=== PATIENT | male | born 1950 | race Caucasian/White ===

== ENCOUNTER 2018-08-01 07:25 | Emergency (ER) | payer MEDICARE ==
[2018-08-01 07:25] VITALS: BMI 18.8
[2018-08-01] MEDS ORDERED: Sodium Chloride 0.9% 500 ML IV ONE ×2 (07:55→08:16)
[2018-08-01 07:56] VITALS: O2SAT 100
--- NOTE | 2018-08-01 08:39 | C.PDOC ---
History Of Present Illness 68-year-old male, PMHx includes diabetes presents to the emergency department with complaints of epigastric pain and sore throat since 2pm yesterday. Patient states he had dinner last night. Denies nausea/vomiting, diarrhea, fever or chills. Time Seen by Provider: 08/01/18 07:48 Chief Complaint (Nursing): GI Problem History Per: Patient History/Exam Limitations: no limitations Past Medical History Reviewed: Historical Data, Nursing Documentation, Vital Signs Vital Signs: Last Vital Signs Temp 98.1 F 08/01/18 07:42 Pulse 68 08/01/18 07:42 Resp 18 08/01/18 07:42 BP 138/75 08/01/18 07:42 Pulse Ox 100 08/01/18 07:42 - Medical History PMH: Denies: Chronic Kidney Disease Family History: States: No Known Family Hx - Social History Hx Alcohol Use: Yes Hx Substance Use: No Review Of Systems Constitutional: Negative for: Fever Respiratory: Negative for: Shortness of Breath Gastrointestinal: Positive for: Abdominal Pain. Negative for: Nausea, Vomiting Skin: Negative for: Rash Neurological: Negative for: Weakness, Numbness Physical Exam - Physical Exam Appears: Non-toxic, No Acute Distress Skin: Warm, Dry, No Rash Head: Atraumatic, Normacephalic Eye(s): bilateral: Normal Inspection Nose: Normal Oral Mucosa: Moist Lips: Normal Appearing Neck: Normal ROM Cardiovascular: Rhythm Regular, No Murmur Respiratory: Normal Breath Sounds, No Accessory Muscle Use Gastrointestinal/Abdominal: Soft, No Tenderness Back: Normal Inspection Extremity: Normal ROM, No Deformity Neurological/Psych: Oriented x3, Normal Speech ED Course And Treatment - Laboratory Results Result Diagrams: 08/01/18 09:11 08/01/18 09:11 O2 Sat by Pulse Oximetry: 100 Pulse Ox Interpretation: Normal (RA) Medical Decision Making Medical Decision Making: suspect reflux esophagitis gerd pud. able to tolerate po as per pt. labs imaging pending pt reassesed pain improeved. states tolerating po. doubt retained food bolus as tolerating po. stable for d.c Disposition - Disposition Referrals: Harpreet Plascencia MD [Staff Provider] - Disposition: HOME/ ROUTINE Disposition Time: 09:00 Condition: STABLE Additional Instructions: return to er with worsening symptoms or concerns Prescriptions: Famotidine [Pepcid] 20 mg PO DAILY #20 tab Instructions: Acute Abdomen (Belly Pain) Forms: [facility] (Danish) - Clinical Impression Clinical Impression: Abdominal pain - Scribe Statement The provider has reviewed the documentation as recorded by the Scribe (Jess Ray) Provider Attestation: All medical record entries made by the Scribe were at my direction and personally dictated by me. I have reviewed the chart and agree that the record accurately reflects my personal performance of the history, physical exam, medical decision making, and the department course for this patient. I have also personally directed, reviewed, and agree with the discharge instructions and disposition.
[2018-08-01 09:17] LABS: BASO % 0.7 % (0.0-2.0); EOS # 0.1 K/uL (0.0-0.7); EOS % 1.8 % (0.0-4.0); HEMOGLOBIN 13.2 g/dL (12.0-18.0); LYMPH # 1.3 K/uL (1.0-4.3); LYMPH % 28.1 % (20.0-40.0); MEAN CELL VOLUME 89.3 fL (80.0-94.0); MEAN CORPUSCULAR HEMOGLOBIN 29.6 pg (27.0-31.0); MEAN CORPUSCULAR HGB CONC 33.1 g/dL (33.0-37.0); MEAN PLATELET VOLUME 11.5 fL (7.2-11.7); MONO # 0.4 K/uL (0.0-0.8); MONO % 9.4 % (0.0-10.0); NEUT # 2.7 K/uL (1.8-7.0); NRBC % 0.1 % (0.0-2.0); RBC 4.47 Mil/uL (4.40-5.90); RED CELL DISTRIBUTION WIDTH 13.7 % (11.5-14.5); WHITE BLOOD COUNT 4.5 K/uL (4.8-10.8)
[2018-08-01 09:20] LABS: SQUAMOUS EPITHIAL < 1 /hpf (0-5); URINE BILIRUBIN NEGATIVE (NEGATIVE); URINE BLOOD 2+ (NEGATIVE); URINE CLARITY Clear (Clear); URINE COLOR Yellow (YELLOW); URINE GLUCOSE (UA) NORMAL (Normal); URINE LEUKOCYTE ESTERASE TRACE Leu/uL (Negative); URINE PROTEIN NEGATIVE (NEGATIVE); URINE UROBILINOGEN NORMAL mg/dL (0.2-1.0)
[2018-08-01 09:26] LABS: ALB/GLOB RATIO 1.6 (1.0-2.1); ALBUMIN 4.1 g/dL (3.5-5.0); ALT/SGPT 28 U/L (21-72); AST/SGOT 27 U/L (17-59); BLOOD UREA NITROGEN 19 mg/dL (9-20); CALCIUM 8.7 mg/dl (8.6-10.4); GFR NON-AFRICAN AMERICAN > 60; LIPASE 81 U/L (23-300)
[2018-08-01 09:28] LABS: PROTHROMBIN TIME 10.6 SECONDS (9.7-12.2)
[2018-08-01 11:04] VITALS: BP 116/81; PULSE 88; RESP 20; TEMP 97.9
== END 2018-08-01 10:30 | disposition home or self-care (01) ==
LOC: C.ER 07:25
DX: R10.13 Epigastric pain (principal)
CPT/HCPCS: 80053; 81001; 83690; 85025; 85610; 85730; 96361; 96374; 96375; 99283; C9113; J2405; J7040

== ENCOUNTER 2018-10-16 07:40 | Day surgery (SDC) | payer MEDICARE ==
[2018-10-16 08:05] VITALS: O2SAT 100
[2018-10-16] MEDS ORDERED: Lactated Ringer's 1,000 ML IV ONE (09:32)
--- NOTE | 2018-10-16 09:33 | CP.SDSHP ---
Same Day Surgery H & P - History Proposed Procedure: EGD Pre-Op Diagnosis: SEE NOITES - Previous Medical/Surgical History Misc: Other Pain: 4.Moderate Pain - Allergies Allergies: Allergies No Known Allergies Allergy (Verified 11/14/16 06:59) - Physical Exam General Appearance: N Vital Signs: Vital Signs 10/16/18 07:58 Temperature 97.3 F L Pulse Rate 56 L Respiratory 18 Rate Blood Pressure 116/70 O2 Sat by Pulse 100 Oximetry Neuro: WNL Heart: WNL Lungs: WNL GI: Other - {Optional Preform as Required} Breast: WNL Abdomen: Other Rectal: Other Integument: WNL : WNL Ortho: Other ENT: WNL - Impression Pt. Evaluated Today:Candidate for Anesthesia & Procedure: Yes - Date & Time Time: 09:32 Short Stay Discharge - Short Stay Discharge Admitting Diagnosis/Reason for Visit: FUNCTIONAL DYSPEPSIA Disposition: HOME/ ROUTINE
[2018-10-16] MEDS ORDERED: Pantoprazole 40 mg EC Tab PO STA (09:34)
[2018-10-16] MEDS ORDERED: Belladonna-Phenobarbital PO STA (09:34)
[2018-10-16] MEDS ORDERED: Propofol 10 mg/ml Inj (20 ML) ONE (09:35)
[2018-10-16] MEDS ORDERED: Lidocaine Hydrochloride 5 ML INJ ONE (10:00)
[2018-10-16 10:11] VITALS: TEMP 97.4
[2018-10-16 11:05] VITALS: BP 135/84; PULSE 64; RESP 12
== END 2018-10-16 11:05 | disposition home or self-care (01) ==
LOC: C.ENDO 07:40
PROVIDERS: ATTEND Specialist
DX: K29.50 Unspecified chronic gastritis without bleeding (principal); B96.81 Helicobacter pylori [H. pylori] as the cause of diseases classified elsewhere; K21.0 Gastro-esophageal reflux disease with esophagitis; K44.9 Diaphragmatic hernia without obstruction or gangrene; K30 Functional dyspepsia; D50.9 Iron deficiency anemia, unspecified
CPT/HCPCS: 43239; 82948; 88305; 88342; J2704; J7120